=== PATIENT | male | born 1950 | race Caucasian/White ===

== ENCOUNTER 2016-08-15 11:08 | Emergency (ER) | payer MEDICARE ==
[~2016-08-15 11:08] MED LIST: ASPIR 8181 MG PO; BACLOFEN10 MG PO; CEFTIN500 MG PO; COUMADIN10 MG PO; COUMADIN3 MG PO; FERROUS SULFAT325 MG PO; GLUCOPHAGE500 MG PO; HUMALOG MI100 UNIT/4 SQ; HYZAAR 100-251 EACH PO; LASIX20 MG PO; LASIX40 MG PO; LIPITOR20 MG PO; MAGNESIUM OXID400 MG PO; MAGNESIUM250 M1 PO; NEURONTIN600 MG PO; NOVOLOG MI100 UNIT/2 SQ; PRILOSEC40 MG PO; REVATIO20 MG PO; TOPROL XL100 MG PO; VIAGRA100 MG PO
== END 2016-08-15 13:30 | disposition home or self-care (01) ==
LOC: ER 11:08
DX: D64.9 Anemia, unspecified (principal); E87.5 Hyperkalemia; R19.7 Diarrhea, unspecified; K21.9 Gastro-esophageal reflux disease without esophagitis; E11.9 Type 2 diabetes mellitus without complications; I10 Essential (primary) hypertension; Z79.84 Long term (current) use of oral hypoglycemic drugs; Z79.01 Long term (current) use of anticoagulants; Z79.82 Long term (current) use of aspirin; Z79.899 Other long term (current) drug therapy; Z91.040 Latex allergy status; Z98.890 Other specified postprocedural states
CPT/HCPCS: 36415; 96374